=== PATIENT | female | born 1955 | race Two or more races ===

== ENCOUNTER 2022-05-09 15:34 | Emergency (ER) | payer MEDICARE ==
[~2022-05-09] VITALS: Ht 154.9 cm; Wt 47.6 kg
[2022-05-09 16:25] LABS: BASOPHILS % (AUTO) 0.6 % (0.0-2.0); EOSINOPHILS % (AUTO) 2.3 % (0.0-6.0); HEMATOCRIT 39 % (33-45); LYMPHOCYTES # (AUTO) 2.1 K/uL (0.8-4.8); LYMPHOCYTES % (AUTO) 32.9 % (20.0-44.0); MEAN CORPUSCULAR HGB CONC 33 g/dl (31.0-36.0); MEAN CORPUSCULAR VOLUME 91 fL (82-100); MONOCYTES # (AUTO) 0.6 K/uL (0.1-1.30); MONOCYTES % (AUTO) 9.7 % (2.0-12.0); NEUTROPHILS # (AUTO) 3.4 K/uL (1.8-8.9); NEUTROPHILS % (AUTO) 54.5 % (43.0-81.0); PLATELET COUNT (AUTO) 193 K/uL (150-450); RED BLOOD CELL COUNT(AUTO) 4.27 MIL/uL (4.0-5.2); WHITE BLOOD COUNT (AUTO) 6.2 K/uL (4.3-11.0)
--- NOTE | 2022-05-09 16:43 | NUR ---
MOSHE CALLED PT CAN GO TO [facility] AFTER BEING MEDICALLY CLEARED PER PIPELAYER GAMAL
[2022-05-09 16:52] LABS: CALCIUM, SERUM 9.1 mg/dL (8.5-10.1); CARBON DIOXIDE 25 mmol/L (21-32); CHLORIDE 106 mmol/L (98-107); CREATININE 0.8 mg/dL (0.6-1.3); GLUCOSE 81 mg/dL (74-106); POTASSIUM 3.9 mmol/L (3.5-5.1); SODIUM SERUM 141 mmol/L (136-145); UREA NITROGEN, BLOOD 22 mg/dL (7-18)
[2022-05-09 17:02] LABS: ALANINE AMINOTRANSFERASE 30 U/L (12-78); ALBUMIN 3.6 g/dL (3.4-5.0); ALKALINE PHOSPHATASE 91 U/L (46-116); ASPARTATE AMINOTRANSFERASE 26 U/L (15-37); BILIRUBIN,DIRECT 0.1 mg/dL (0.0-0.2); BILIRUBIN,TOTAL 0.2 mg/dL (0.2-1.0); TOTAL PROTEIN, SERUM 6.4 g/dL (6.4-8.2)
[2022-05-09] MEDS ORDERED: diphenhydrAMINE HCL 50 MG/ML VIAL IV ONE (17:30)
[2022-05-09] MEDS ORDERED: diphenhydrAMINE HCL 50 MG/ML VIAL ONE (17:40)
--- NOTE | 2022-05-09 17:46 | NUR ---
Pt refused medications and wanting to go home. Dr Burnett aware
--- NOTE | 2022-05-09 18:11 | NUR ---
[facility] CALLED FOR TRANSPORT ETA 30 MINS PER EVA.
--- NOTE | 2022-05-09 20:55 | NUR ---
[facility] AT BEDSIDE FOR PATIENT TRANSFER
[2022-05-09 20:56] VITALS: BP 144/70
== END 2022-05-09 20:56 ==
LOC: ER 16:21
DX: R07.89 Other chest pain (principal); G25.71 Drug induced akathisia; I10 Essential (primary) hypertension; Z88.8 Allergy status to other drugs, medicaments and biological substances; F17.200 Nicotine dependence, unspecified, uncomplicated
CPT/HCPCS: 36415; 71045-TC; 80048-TC; 80076-TC; 84484-TC; 85025-TC; J1200

== ENCOUNTER 2022-08-31 22:54 | Emergency (ER) | payer MEDICARE, OTHER ==
[~2022-08-31] VITALS: Ht 165.1 cm; Wt 554.3 kg
--- NOTE | 2022-08-31 22:59 | NUR ---
[email or web address], from [facility], c/o weakness x 1 hour, bg [phone]
[2022-08-31] MEDS ORDERED: IV NS 0.9% 1,000 ML BAG IV ONE (23:30)
--- NOTE | 2022-08-31 23:30 | NUR ---
URINE COLLECTED SENT TO LAB
--- NOTE | 2022-08-31 23:36 | NUR ---
IV 20G R AC STARTED. BLOOD COLLECTED AND SENT TO LAB
--- NOTE | 2022-08-31 23:40 | NUR ---
PT TAKEN TO CT
[2022-08-31 23:51] LABS: BASOPHILS # (AUTO) 0.1 K/uL (0.0-0.2); BASOPHILS % (AUTO) 1.1 % (0.0-2.0); EOSINOPHILS % (AUTO) 4.2 % (0.0-6.0); HEMATOCRIT 39 % (33-45); HEMOGLOBIN 12.8 g/dL (11.5-14.8); LYMPHOCYTES # (AUTO) 1.8 K/uL (0.8-4.8); LYMPHOCYTES % (AUTO) 35.5 % (20.0-44.0); MEAN CORPUSCULAR HGB CONC 32 g/dl (31.0-36.0); MEAN CORPUSCULAR VOLUME 95 fL (82-100); MONOCYTES # (AUTO) 0.5 K/uL (0.1-1.30); MONOCYTES % (AUTO) 9.3 % (2.0-12.0); NEUTROPHILS # (AUTO) 2.5 K/uL (1.8-8.9); NEUTROPHILS % (AUTO) 49.9 % (43.0-81.0); PLATELET COUNT (AUTO) 235 K/uL (150-450); RED BLOOD CELL COUNT(AUTO) 4.16 MIL/uL (4.0-5.2)
--- NOTE | 2022-08-31 23:55 | NUR ---
PT RETURNED FROM [place]
[2022-09-01 00:05] LABS: ALANINE AMINOTRANSFERASE 40 U/L (12-78); ALBUMIN 3.6 g/dL (3.4-5.0); ALCOHOL, BLOOD < 3 mg/dL (0-0); ALKALINE PHOSPHATASE 124 U/L (46-116); ASPARTATE AMINOTRANSFERASE 25 U/L (15-37); BILIRUBIN,DIRECT 0.1 mg/dL (0.0-0.2); BILIRUBIN,TOTAL 0.2 mg/dL (0.2-1.0); CALCIUM, SERUM 9.2 mg/dL (8.5-10.1); CARBON DIOXIDE 29 mmol/L (21-32); CHLORIDE 101 mmol/L (98-107); CREATININE 0.8 mg/dL (0.6-1.3); GLUCOSE 88 mg/dL (74-106); POTASSIUM 3.4 mmol/L (3.5-5.1); SODIUM SERUM 139 mmol/L (136-145); TOTAL PROTEIN, SERUM 6.9 g/dL (6.4-8.2); UREA NITROGEN, BLOOD 26 mg/dL (7-18)
[2022-09-01 00:06] LABS: BILIRUBIN,URINE NEGATIVE (NEGATIVE); COLOR,URINE YELLOW (YELLOW); LEUKOCYTE ESTERASE ,URINE NEGATIVE (NEGATIVE); NITRITE, URINE NEGATIVE (NEGATIVE); PH,URINE 5.5 (5.0-8.0); PROTEIN,URINE NEGATIVE (NEGATIVE); UGLUCOSE NEGATIVE (NEGATIVE); UROBILINOGEN,URINE 0.2 EU/dL (0.2)
[2022-09-01 00:13] LABS: THYROID STIMULATING HORMONE 2.151 uIU/mL (0.358-3.74)
--- NOTE | 2022-09-01 00:35 | NUR ---
IV 20G ON RFA INFILTRATED. RESTARTED IV ON L WRIST 22G
--- NOTE | 2022-09-01 03:21 | NUR ---
[facility] CALLED FOR TRANSPORT. ETA 45-60 MINUTES.
--- NOTE | 2022-09-01 03:26 | NUR ---
REPORT GIVEN TO [facility]
--- NOTE | 2022-09-01 03:56 | NUR ---
PICKED UP BY [facility] TO RETURN BACK TO [facility] IN STABLE CONDITION.
[2022-09-01 04:02] VITALS: BP 142/58
== END 2022-09-01 04:03 | disposition home or self-care (01) ==
LOC: ER 22:56
DX: E86.0 Dehydration (principal); R41.82 Altered mental status, unspecified; I10 Essential (primary) hypertension; F17.200 Nicotine dependence, unspecified, uncomplicated; Z88.8 Allergy status to other drugs, medicaments and biological substances
CPT/HCPCS: 99284; 96360; 96361; 71045; 70450; 85025; 80048; 80076; 81003; 36415; 84443; 85730; 82962; 80320; 80307; J7030; G0480